=== PATIENT | female | born 1975 | race Caucasian/White ===

== ENCOUNTER 2024-11-01 21:15 | Emergency (ER) | payer MEDICAID, SELFPAY ==
[2024-11-01 21:49] VITALS: BP 107/66; PULSE 76; TEMP 36.7; O2SAT 99; BMI 22.5
[2024-11-01 22:51] VITALS: BP 107/68; PULSE 70; O2SAT 95
[2024-11-01 23:46] LABS: Hematocrit 37.4 % (36.0-48.0); Hemoglobin 13.1 g/dL (12.0-16.0); Immature Granulocytes Abs Auto 0.03 10^3/uL (0.00-0.03); Immature Granulocytes Pct Auto 0.4 % (0.0-0.5); Lymphocytes Absolute Auto 1.3 10^3/uL (1.2-3.8); Mean Corpuscular HGB Conc 35.0 g/dL (29.9-35.2); Mean Corpuscular Hemoglobin 32.3 pg (26.7-34.0); Mean Corpuscular Volume 92.1 fL (81.0-99.0); Platelet Count 191 10^3/uL (150-450); Red Blood Count 4.06 10^6/uL (4.20-5.40); White Blood Count 7.3 10^3/uL (4.0-11.0)
[2024-11-02] LABS: Alanine Aminotransferase 16 U/L (14-59); Albumin Level 3.8 g/dL (3.4-5.0); Alkaline Phosphatase 50 U/L (46-116); Anion Gap 11.6; Aspartate Amino Transferase 10 U/L (15-37); Blood Urea Nitrogen 15.0 mg/dL (7.0-18.0); Calcium 8.9 mg/dL (8.5-10.1); Carbon Dioxide 24.8 mmol/L (21.0-32.0); Chloride 103 mmol/L (98-107); Estimated GFR (African America >60 (>=60 mL/min/1.73m^2); Estimated GFR (Non-African Ame >60 (>=60 mL/min/1.73m^2); Globulin 2.9 g/dL; Glucose 124 mg/dL (74-106); Lipase 24.0 U/L (16.0-77.0); Potassium 3.4 mmol/L (3.5-5.1); Sodium 136 mmol/L (136-145); Total Protein 6.7 g/dL (6.4-8.2)
[2024-11-02 00:01] LABS: Albumin Globulin Ratio 1.3
[2024-11-02 01:42] VITALS: BP 106/64; PULSE 56; O2SAT 99
[2024-11-02] MEDS: MORPHINE SULFATE 2 MG/ML SYRINGE IV (01:42)
--- NOTE | 2024-11-02 06:44 | ED.GENADUL1 ---
HPI HPI - General Adult General Chief complaint: Abdominal Pain Stated complaint: ABDOMINAL PAIN Time Seen by Provider: 11/01/24 22:50 Source: patient Mode of arrival: walk-in Limitations: no limitations History of Present Illness HPI narrative: Patient is a 49-year-old female presenting to the emergency department for concerns of abdominal pain. Patient states her pain has been ongoing since March ever since having a hernia repair with mesh placement. She states that her pain and nausea/vomiting has acutely worsened over the last 24 hours. She states the pain is located in the left part of her abdomen and does not radiate. Her last bowel movement was yesterday, and is still passing gas. She denies any fevers or chills. No dysuria. No chest pain or shortness of breath. Denies being . She has been taking tramadol for pain. She has chronic abdominal pain and follows up with a GI doctor. She was recently started on Linzess for IBS. Related Data Previous Rx's ?Medication ?Instructions ?Recorded ondansetron 4 mg disintegrating 4 mg PO Q8H PRN nausea and 11/02/24 tablet vomiting 5 days #10 tabs tramadol 50 mg tablet 50 mg PO TID PRN pain #12 tabs 11/02/24 Allergies Allergy/AdvReac Type Severity Reaction Status Date / Time codeine AdvReac Nausea Verified 11/01/24 21:56 Opioid HPI Opioid Management Most Recent Opioid Data: Last Pain Scale 8 11/01/24, 21:49 Review of Systems ROS Status of ROS 10 or more systems reviewed and unremarkable except as noted in history and below PFSH PFSH Social History Little interest or pleasure in doing things: not at all Feeling down, depressed, or hopeless: not at all Exam Narrative Exam Narrative: CONSTITUTIONAL: Appears uncomfortable but nontoxic, answering questions and following commands appropriately SKIN: Was warm and dry. EYES: Sclerae white. EARS, NOSE, THROAT: Moist oral mucosa. RESPIRATORY: Clear to auscultation bilaterally, no wheezes, crackles, or stridor, no use of accessory muscles CARDIOVASCULAR: Normal rate and regular rhythm. There is no S3, S4, murmur, rub. GASTROINTESTINAL: Mild tenderness to palpation throughout the left side of her abdomen. Nondistended. No rebound tenderness or guarding. MUSCULOSKELETAL: No peripheral edema. NEUROLOGIC: Patient is awake and alert. Facies were symmetrical. Constitutional Vital Signs, click to edit/add: Last Vital Signs Temp 98.1 F 11/01/24 21:49 Pulse 56 L 11/02/24 01:42 Resp 20 11/02/24 01:42 BP 106/64 11/02/24 01:42 Pulse Ox 99 11/02/24 01:42 O2 Del Method Room Air 11/02/24 01:42 Course Vital Signs Vital signs: Vital Signs Temperature 98.1 F 11/01/24 21:49 Pulse Rate 76 11/01/24 21:49 Respiratory Rate 18 11/01/24 21:49 Blood Pressure 107/66 11/01/24 21:49 Pulse Oximetry 99 11/01/24 21:49 Oxygen Delivery Method Room Air 11/01/24 21:49 Temperature 98.1 F 11/01/24 21:49 Pulse Rate 56 L 11/02/24 01:42 Respiratory Rate 20 11/02/24 01:42 Blood Pressure 106/64 11/02/24 01:42 Pulse Oximetry 99 11/02/24 01:42 Oxygen Delivery Method Room Air 11/02/24 01:42 Medical Decision Making MDM Narrative Medical decision making narrative: Patient is a 49-year-old female presenting to the emergency department with an 8-month history of abdominal pain, acutely worsening over the last 24 hours. Vital signs on arrival are within normal limits. She is afebrile and hemodynamically stable. Examination as noted above, however is notable for tenderness to palpation to the left side of her abdomen without peritoneal signs. Differential diagnosis includes complications related to her prior hernia repair/mesh placement, IBS, diverticulitis, gastritis, or other intra-abdominal pathologies. IV was established and laboratory studies were obtained. CT abdomen/pelvis was ordered. She was treated symptomatically with Zofran and IV morphine. Laboratory studies were unremarkable. No significant electrolyte or metabolic derangement. No evidence of acute kidney injury. No anemia, leukocytosis, or thrombocytopenia. No transaminitis or hyperbilirubinemia. test negative. Lipase not elevated. CT abdomen/pelvis independent reviewed/interpreted by myself demonstrated possible thickening of the colonic wall, possible early colitis. Interpretation was confirmed by radiology. On reevaluation, patient states she feels mildly improved. Her presentation is likely secondary to mild colitis/viral colitis or IBS. Patient is stable for discharge and outpatient follow-up with her GI doctor. She was given a prescription for tramadol and Zofran for the next 3 days. Return precautions were given including any new or concerning symptoms. Patient understands and agrees to the plan. Medical Records Medical records reviewed: Yes I reviewed the patient's medical records Lab Data Lab results reviewed: Yes I reviewed the patient's lab results Labs: Lab Results 11/01/24 Range/Units 23:35 WBC 7.3 (4.0-11.0) 10^3/uL RBC 4.06 L (4.20-5.40) 10^6/uL Hgb 13.1 (12.0-16.0) g/dL Hct 37.4 (36.0-48.0) % MCV 92.1 (81.0-99.0) fL MCH 32.3 (26.7-34.0) pg MCHC 35.0 (29.9-35.2) g/dL RDW 12.1 (11.0-15.0) % Plt Count 191 (150-450) 10^3/uL MPV 9.6 (9.5-13.5) fL Neut % (Auto) 67.5 (43.0-75.0) % Lymph % (Auto) 17.6 L (20.5-60.0) % Bremer % (Auto) 11.3 (1.7-12.0) % Eos % (Auto) 2.7 (0.9-7.0) % Baso % (Auto) 0.5 (0.2-2.0) % Neut # (Auto) 5.0 (1.4-6.5) 10^3/uL Lymph # (Auto) 1.3 (1.2-3.8) 10^3/uL Bremer # (Auto) 0.8 (0.3-0.8) 10^3/uL Eos # (Auto) 0.2 (0.0-0.7) 10^3/uL Baso # (Auto) 0.0 (0.0-0.1) 10^3/uL Abs Immat Gran (auto) 0.03 (0.00-0.03) 10^3/uL Imm/Tot Granulo (auto) 0.4 (0.0-0.5) % Sodium 136 (136-145) mmol/L Potassium 3.4 L (3.5-5.1) mmol/L Chloride 103 (98-107) mmol/L Carbon Dioxide 24.8 (21.0-32.0) mmol/L Anion Gap 11.6 BUN 15.0 (7.0-18.0) mg/dL Creatinine 0.63 (0.55-1.02) mg/dL Est GFR ( Amer) >60 (>=60 mL/min/1.73m^2) Est GFR (Non-Af Amer) >60 (>=60 mL/min/1.73m^2) BUN/Creatinine Ratio 23.8 Glucose 124 H (74-106) mg/dL Calcium 8.9 (8.5-10.1) mg/dL Total Bilirubin 0.8 (0.2-1.0) mg/dL AST 10 L (15-37) U/L ALT 16 (14-59) U/L Alkaline Phosphatase 50 (46-116) U/L Total Protein 6.7 (6.4-8.2) g/dL Albumin 3.8 (3.4-5.0) g/dL Globulin 2.9 g/dL Albumin/Globulin Ratio 1.3 Lipase 24.0 (16.0-77.0) U/L Serum HCG, Qual Negative (NEGATIVE) Imaging Data CT scan - abdomen: Attestation: I personally reviewed and interpreted this imaging study as follows: My impression: Possible thickening of the colonic wall, possible early colitis. Interpretation was confirmed by radiology. Discharge Plan Discharge Chief Complaint: Abdominal Pain Clinical Impression: Colitis Patient Disposition: Home, Self-Care Time of Disposition Decision: 02:02 Condition: Good Mode of Transportation: Private Vehicle Prescriptions / Home Meds: New ondansetron 4 mg tablet,disintegrating 4 mg PO Q8H PRN (Reason: nausea and vomiting) 5 Days Qty: 10 0RF tramadol 50 mg tablet 50 mg PO TID PRN (Reason: pain) Qty: 12 0RF Print Language: Serbian Instructions: Colitis (ED) Referrals: Physician,Non-Staff, MD [Primary Care Provider] - 1 week Discharge Date/Time: 11/02/24 04:55
== END 2024-11-02 04:55 | disposition home or self-care (01) ==
PROVIDERS: Emergency Provider Student in an Organized Health Care Education/Training Program
DX: K52.9 Noninfective gastroenteritis and colitis, unspecified (principal); R10.84 Generalized abdominal pain; R11.2 Nausea with vomiting, unspecified
CPT/HCPCS: 36415; 74177; 80053; 81001; 83690; 84703; 85025; 96374; 96375; 96376; 99285; J2270; J2405; Q9967